=== PATIENT | female | born 1990 | race Two or more races ===

== ENCOUNTER 2023-10-13 10:59 | Emergency (ER) | payer OTHER ==
[2023-10-13 11:06] VITALS: BMI 31.2
[2023-10-13] MEDS ORDERED: ACETAMINOPHEN 325 MG TABLET (FP) PO ONE (12:19)
[2023-10-13] MEDS ORDERED: ACETAMINOPHEN 325 MG TABLET (FP) ONE (12:40)
[2023-10-13 16:35] VITALS: BP 99/55; PULSE 61; RESP 20; TEMP 98.6
== END 2023-10-13 15:30 | disposition home or self-care (01) ==
LOC: JERFT 10:59 → JER 10:59
DX: O99.512 Diseases of the respiratory system complicating pregnancy, second trimester (principal); J02.9 Acute pharyngitis, unspecified; O26.892 Other specified pregnancy related conditions, second trimester; R05.9 Cough, unspecified; R09.81 Nasal congestion; J06.9 Acute upper respiratory infection, unspecified; B97.89 Other viral agents as the cause of diseases classified elsewhere; R51.9 Headache, unspecified; Z3A.23 23 weeks gestation of pregnancy; Z20.822 Contact with and (suspected) exposure to COVID-19
CPT/HCPCS: 0241U-QW; 76815; 87651; 99284-25

== ENCOUNTER 2024-01-22 10:15 | Inpatient (IN) | payer OTHER ==
[2024-01-22] MEDS: ELECTROLYTE-148 SOLN 500 ML IV SCH ×2 (11:00→11:30)
[2024-01-22 12:01] VITALS: BMI 34.2
[2024-01-22] MEDS ORDERED: LIGASURE IMPACT TP ONE (12:05)
[2024-01-22] MEDS: CITRIC ACID/SODIUM CITRATE 30 ML UNIT-DOSE CUP PO ONE (12:10)
[2024-01-22] MEDS ORDERED: FENTANYL CITRATE/PF 50 MCG/ML VIAL ONE (12:15)
[2024-01-22] MEDS ORDERED: morphine SULFATE/PF 1 MG/2 ML (2cc Syringe - QUVA) ONE (12:15)
[2024-01-22] MEDS ORDERED: KETOROLAC TROMETHAMINE 30 MG/1 ML VIAL ONE (12:17)
[2024-01-22] MEDS ORDERED: ONDANSETRON 4 MG/2 ML VIAL ONE (12:17)
[2024-01-22] MEDS ORDERED: OXYTOCIN 10 UNITS/ML VIAL ONE (12:17)
[2024-01-22] MEDS ORDERED: ceFAZolin SODIUM 1 GM VIAL ONE (12:17)
[2024-01-22] MEDS ORDERED: OXYTOCIN 20 UNITS in 0.9% NS 20 UNIT/1,000 ML INFUS.BAG IV ONE (13:55)
[2024-01-22] MEDS: OXYTOCIN 20 UNITS in 0.9% NS 20 UNIT/1,000 ML INFUS.BAG IV SCH (13:55)
[2024-01-22] MEDS: IBUPROFEN 800 MG/8 ML IJ IVPB PRN (16:33)
[2024-01-22] MEDS: METHYLERGONOVINE MALEATE 0.2 MG/1 ML AMP IM ONE (20:40)
[2024-01-22] MEDS: METOCLOPRAMIDE HCL INJECTION 10 MG/2 ML VIAL IVPB PRN (20:41)
[2024-01-23 08:44] LABS: BASO % 0.2 % (0-2.0); EOS % 1.3 % (0-4.5); HEMATOCRIT 28.1 % (32.4-45.2); HEMOGLOBIN 9.5 GM/dL (10.7-15.3); LYMPH % 10.9 % (8-40); MCH 30.3 pg (25.7-33.7); MCHC 33.8 g/dl (32.0-36.0); MEAN CELL VOLUME 89.5 fl (80-96); MEAN PLT VOLUME 8.9 fl (7.5-11.1); MONO % 4.4 % (3.8-10.2); NEUT % 83.2 % (42.8-82.8); PLATELET COUNT 149 10^3/uL (134-434); RBC 3.14 M/mm3 (3.60-5.2); RDW 15.1 % (11.6-15.6); WHITE BLOOD COUNT 9.9 K/mm3 (4.0-10.0)
[2024-01-23] MEDS: oxyCODONE HCL 5 MG TABLET PO PRN (12:24)
[2024-01-23] MEDS: SIMETHICONE 80 MG TAB.CHEW (FP) PO PRN (12:24)
[2024-01-23] MEDS ORDERED: BISACODYL 10 MG SUPP.RECT RC PRN (12:45)
[2024-01-23] MEDS: IBUPROFEN 600 MG TABLET (FP) PO PRN (13:59)
[2024-01-23 22:22] VITALS: RESP 18
[2024-01-24] MEDS: ACETAMINOPHEN 325 MG TABLET (FP) PO PRN (00:09)
[2024-01-25 07:29] LABS: BASO % 0.3 % (0-2.0); EOS % 3.9 % (0-4.5); HEMATOCRIT 25.3 % (32.4-45.2); HEMOGLOBIN 8.4 GM/dL (10.7-15.3); MCHC 33.2 g/dl (32.0-36.0); MEAN CELL VOLUME 90.2 fl (80-96); MONO % 6.5 % (3.8-10.2); NEUT % 66.3 % (42.8-82.8); PLATELET COUNT 167 10^3/uL (134-434); RBC 2.81 M/mm3 (3.60-5.2); RDW 15.2 % (11.6-15.6); WHITE BLOOD COUNT 7.6 K/mm3 (4.0-10.0)
[2024-01-25 10:42] VITALS: BP 118/70; PULSE 79; TEMP 98.1
== END 2024-01-25 13:00 | disposition home or self-care (01) | DRG 540 ==
LOC: JLDR 10:15 → J3W 16:13
PROVIDERS: ADMIT Student in an Organized Health Care Education/Training Program; ATTEND Student in an Organized Health Care Education/Training Program
PROC: 10D00Z1 Extraction of Products of Conception, Low, Open Approach (ICD-10-PCS; principal; 2024-01-22)
PROC: 0UB70ZZ Excision of Bilateral Fallopian Tubes, Open Approach (ICD-10-PCS; 2024-01-22)
DX: O34.211 Maternal care for low transverse scar from previous cesarean delivery (principal); N85.8 Other specified noninflammatory disorders of uterus; Z30.2 Encounter for sterilization; Z3A.39 39 weeks gestation of pregnancy; Z37.0 Single live birth
CPT/HCPCS: 36415; 80053; 81003; 85025; 85610; 86780; 86850; 86900; 86901; 88305-TC; 88307-TC; 94010